=== PATIENT | female | born 2000 | race Caucasian/White ===

== ENCOUNTER 2025-05-06 13:45 | Emergency (ER) | payer MEDICAID, OTHER ==
[~2025-05-06] VITALS: Ht 162.6 cm; Wt 56.7 kg
[~2025-05-06 13:45] MED LIST: Acetaminophen PO; NATURE THROID; [UNRECOGNIZED DRUG - OTHER]
[2025-05-06] MEDS ORDERED: ONDANSETRON 4 MG/2 ML VIAL ONE (14:10)
[2025-05-06] MEDS ORDERED: HYDROMORPHONE 1 MG/1 ML DISP.SYRIN ONE (14:10)
[2025-05-06] MEDS ORDERED: KETOROLAC TROMETHAMINE 30 MG INJ ONE (14:10)
[2025-05-06] MEDS: HYDROMORPHONE 1 MG/1 ML DISP.SYRIN IV ONE (14:19)
[2025-05-06] MEDS: KETOROLAC TROMETHAMINE 30 MG INJ IVP ONE (14:19)
[2025-05-06] MEDS: ONDANSETRON 4 MG/2 ML VIAL IV ONE (14:19)
[2025-05-06] MEDS: IV NORMAL SALINE 1000 ML BAG IV ONE (14:19)
[2025-05-06 14:20] LABS: PLATELET COUNT (AUTO) 274 K/uL (179-408); RED BLOOD CELL COUNT(AUTO) 4.43 MIL/uL (3.63-4.92); RED CELL DISTRIBUTION WIDTH 13.2 % (12.3-17.7); WHITE BLOOD COUNT (AUTO) 9.3 K/uL (3.8-11.8)
[2025-05-06 14:27] LABS: CREATININE 0.8 mg/dL (0.6-1.3); SODIUM SERUM 139 mmol/L (136-145); UREA NITROGEN, BLOOD 12 mg/dL (7-18)
[2025-05-06 14:33] LABS: ASPARTATE AMINOTRANSFERASE 21 U/L (15-37); TOTAL PROTEIN, SERUM 7.7 g/dL (6.4-8.2)
[2025-05-06 14:43] LABS: PREGNANCY TEST SERUM QUAN < 1 miul/L (0-6)
[2025-05-06 15:48] LABS: *BILIRUBIN,URIN NEGATIVE (NEGATIVE); *BLOOD, URINE 3+ (NEGATIVE); *CLARITY,URINE SLIGHTLY CLOUDY (CLEAR); *COLOR,URINE YELLOW (YELLOW); *KETONES,URINE TRACE (NEGATIVE); *PROTEIN,URINE 2+ (NEGATIVE); *UROBILINOGEN,URINE 0.2 E.U./dl (NORMAL); LEUKOCYTE ESTERASE ,URINE NEGATIVE (NEGATIVE); NITRITE, URINE NEGATIVE (NEGATIVE); UGLUCOSE NEGATIVE (NEGATIVE)
[2025-05-06 16:04] LABS: SQUAMOUS EPITHELIAL CELL,UR FEW /HPF (NONE SEEN); URINE AMORPHOUS URATE MODERATE /HPF
[2025-05-06 18:06] VITALS: BP 98/50
[2025-05-06] MEDS ORDERED: OXYC-128 PO (18:21)
[2025-05-06] MEDS ORDERED: NAPR-1164 PO (18:21)
[2025-05-06 18:42] VITALS: BP 101/60; TEMP 98.7; O2SAT 98
== END 2025-05-06 18:44 | disposition home or self-care (01) ==
LOC: ER 13:51
DX: R10.20 Pelvic and perineal pain unspecified side (principal); E03.9 Hypothyroidism, unspecified; Z86.59 Personal history of other mental and behavioral disorders; Z79.899 Other long term (current) drug therapy; Z88.7 Allergy status to serum and vaccine
CPT/HCPCS: 99285; 96374; 76856; 96375; 96361; 80076; 80048; 81001; 83735; 85025; 84702; 36415; J1885; J2405; J1171; J7040; A4606; A4663